=== PATIENT | male | born 1980 | race Caucasian/White ===

== ENCOUNTER 2017-08-22 15:16 | Emergency (ER) | payer BC ==
[2017-08-22] MEDS ORDERED: Sodium Chloride 0.9% 10 ML Syringe FLUSH PRN (15:28)
--- NOTE | 2017-08-22 16:30 | EDM.PDOC ---
ED HPI GENERAL MEDICAL PROBLEM - General Chief Complaint: General Stated Complaint: ABDOMINAL PAIN Time Seen by Provider: 08/22/17 15:27 Source of Information: Reports: Patient, RN Notes Reviewed - History of Present Illness INITIAL COMMENTS - FREE TEXT/NARRATIVE: 36 year old male referred from [facility] for eval of abd pain, distension, possible ascites. He "quit drinking" 3 wks ago but than admits he is still having 1 or 2 beers per evening. Not drinking hard liquor morning to evening like he had been previously. Has intermitant abd pain the last week or so. Increased abd distensiont the last 2 to 3 weeks "since he quit drinking so heavily". No pain at this time. No nausea or vomting. No difficulty breathing. Eating OK. - Related Data Allergies Allergy/AdvReac Type Severity Reaction Status Date / Time No Known Allergies Allergy Verified 08/22/17 15:28 Home Meds: Home Meds Simethicone [Gas-X] 1 tab PO DAILY PRN 08/22/17 [History] Past Medical History - Past Health History Medical/Surgical History: Denies Medical/Surgical History Social & Family History - Tobacco Use Smoking Status *Q: Current Every Day Smoker Years of Tobacco use: 10 Packs/Tins Daily: 0.2 - Caffeine Use Caffeine Use: Reports: None - Recreational Drug Use Recreational Drug Use: Yes Drug Use in Last 12 Months: No ED ROS GENERAL - Review of Systems Review Of Systems: See Below Constitutional: Denies: Fever, Chills, Diaphoresis HEENT: Reports: No Symptoms Respiratory: Denies: Shortness of Breath, Pleuritic Chest Pain Cardiovascular: Denies: Chest Pain GI/Abdominal: Reports: Abdominal Pain. Denies: Diarrhea, Nausea, Vomiting Musculoskeletal: Reports: No Symptoms Skin: Reports: No Symptoms Neurological: Reports: No Symptoms ED EXAM, GENERAL - Physical Exam Exam: See Below General Appearance: Alert, No Apparent Distress Eye Exam: Bilateral Eye: PERRL Throat/Mouth: Normal Inspection, Normal Oropharynx Head: Atraumatic. No: Facial Swelling Neck: Supple, Full Range of Motion Respiratory/Chest: No Respiratory Distress, Lungs Clear, Normal Breath Sounds Cardiovascular: Tachycardia GI/Abdominal: Soft, Distended (moderate distension, no fluid wave present but suspect ascites). No: Guarding, Rebound, Tender Extremities: Normal Inspection, Normal Range of Motion Neurological: Alert, Oriented, No Motor/Sensory Deficits Skin Exam: Warm, Dry, Normal Color Course - Vital Signs Text/Narrative:: labs have come back as documented, no abd pain while here in the ED, mostly concerned about increasing abd distension this past month or so. He does appear to have ascites, presumably from alcoholic cirrhosis. Labs as documented , bilirubin elevated, liver enzymes are relatively OK, have ordere outpatient US of liver, GB, discharge instr. as documented. Last Recorded V/S: Last Vital Signs Temp 98 F 08/22/17 15:26 Pulse 126 H 08/22/17 15:26 Resp 18 08/22/17 15:26 BP 128/93 H 08/22/17 15:26 Pulse Ox 97 08/22/17 15:26 - Orders/Labs/Meds Orders: Active Orders 24 hr Category Date Time Status Peripheral IV Care [RC] . DIRECTED Care 08/22/17 15:29 Inactive Labs: Laboratory Tests 08/22/17 08/22/17 08/22/17 Range/Units 16:20 16:20 16:20 WBC 12.01 H (4.23-9.07) K/mm3 RBC 4.04 L (4.63-6.08) M/mm3 Hgb 14.2 (13.7-17.5) gm/L Hct 40.6 (40.1-51.0) % MCV 100.5 H (79.0-92.2) fl MCH 35.1 H (25.7-32.2) pg MCHC 35.0 (32.2-35.5) g/dl RDW Std Deviation 52.7 H (35.1-43.9) fL Plt Count 164 (163-337) K/mm3 MPV 9.6 (9.4-12.3) fl Neut % (Auto) 74.0 H (34.0-67.9) % Lymph % (Auto) 14.9 L (21.8-53.1) % Lanier % (Auto) 9.4 (5.3-12.2) % Eos % (Auto) 0.7 L (0.8-7.0) Baso % (Auto) 0.2 (0.1-1.2) % Neut # (Auto) 8.88 H (1.78-5.38) K/mm3 Lymph # (Auto) 1.79 (1.32-3.57) K/mm3 Lanier # (Auto) 1.13 H (0.30-0.82) K/mm3 Eos # (Auto) 0.09 (0.04-0.54) K/mm3 Baso # (Auto) 0.02 (0.01-0.08) K/mm3 Manual Slide Review Abnormal smear Sodium 130 L (136-145) mEq/L Potassium 2.9 L (3.5-5.1) mEq/L Chloride 90 L (98-107) mEq/L Carbon Dioxide 26 (21-32) mEq/L Anion Gap 16.9 H (5-15) BUN 7 (7-18) mg/dL Creatinine 0.7 (0.7-1.3) mg/dL Est Cr Clr Drug Dosing 138.43 mL/min Estimated GFR (MDRD) > 60 (>60) mL/min BUN/Creatinine Ratio 10.0 L (14-18) Glucose 216 H (74-106) mg/dL Calcium 8.3 L (8.5-10.1) mg/dL Total Bilirubin 4.6 H (0.2-1.0) mg/dL AST 114 H (15-37) U/L ALT 54 (16-63) U/L Alkaline Phosphatase 245 H (46-116) U/L C-Reactive Protein 12.4 H* (<1.0) mg/dL Total Protein 6.3 L (6.4-8.2) g/dl Albumin 2.2 L (3.4-5.0) g/dl Globulin 4.1 gm/dL Albumin/Globulin Ratio 0.5 L (1-2) Lipase 291 (73-393) U/L Meds: Medications Discontinued Medications Generic Name Dose Route Start Last Admin Trade Name Freq PRN Reason Stop Dose Admin Sodium Chloride 10 ml 08/22/17 15:28 Saline Flush FLUSH ASDIRECTED PRN Keep Vein Open Departure - Departure Time of Disposition: 17:38 Disposition: Home, Self-Care 01 Condition: Fair Clinical Impression: Abdominal pain Qualifiers: Abdominal location: generalized Qualified Code(s): R10.84 - Generalized abdominal pain Ascites Qualifiers: Ascites type: due to alcoholic cirrhosis Qualified Code(s): K70.31 - Alcoholic cirrhosis of liver with ascites - Discharge Information Instructions: Abdominal Pain, Adult, [id number], Ascites Referrals: PCP,None [Primary Care Provider] - Forms: ED Department Discharge Additional Instructions: avoid further alcohol, eat regular healthy balanced diet, drink plenty of water to maintain hydration. Upper abd ultrasound. Follow up with Janet Bailey for a complete physical, ultrasound results. Return to ED as needed. - My Orders Last 24 Hours: My Active Orders 08/22/17 15:29 Peripheral IV Care [RC] . DIRECTED - Assessment/Plan Last 24 Hours: My Active Orders 08/22/17 15:29 Peripheral IV Care [RC] . DIRECTED
== END 2017-08-22 17:47 | disposition home or self-care (01) ==
LOC: JD.ED 15:16
DX: K70.31 Alcoholic cirrhosis of liver with ascites (principal); F17.210 Nicotine dependence, cigarettes, uncomplicated; Z79.899 Other long term (current) drug therapy
CPT/HCPCS: 36415; 80053; 83690; 85025; 86140; 99284

== ENCOUNTER 2017-09-07 14:04 | Emergency (ER) | payer BC ==
[2017-09-07] MEDS ORDERED: Sodium Chloride 0.9% 10 ML Syringe FLUSH PRN (14:31)
[2017-09-07] MEDS ORDERED: Sodium Chloride 0.9% 1,000 ML IV ONE ×2 (14:33)
[2017-09-07] MEDS ORDERED: Lactulose Soln 10 GM/15 ML 30 ML UD Cup PO ONE (14:38)
--- NOTE | 2017-09-07 14:46 | EDM.PDOC ---
<Nakul Allison - Last Filed: 09/07/17 18:51> ED HPI GENERAL MEDICAL PROBLEM - General Chief Complaint: General Stated Complaint: [facility] Time Seen by Provider: 09/07/17 14:19 - Related Data Allergies Allergy/AdvReac Type Severity Reaction Status Date / Time No Known Allergies Allergy Verified 09/07/17 14:13 Home Meds: Home Meds . [No Known Home Meds] 09/07/17 [History] ED CENTRAL LINE INSERTION - Central Line Insertion Central Line Indication: IV access, medication administration Site: subclavian (R) Prep: CDC/MBT Guidelines, Sterile Drapes, Other (chlorprep) Lumen: triple Ultrasound guided: Yes Guidewire and dilator removed intact: Yes Complications: No Secured with suture: Yes Post placement confirmation: CXR, all ports aspirated, all ports flushed CXR post-procedure: no pneumothorax, no hemothorax Dressing applied: by nurse, op-site dressing Course - Vital Signs Last Recorded V/S: Last Vital Signs Temp 96.6 F 09/07/17 18:20 Pulse 96 09/07/17 18:20 Resp 10 L 09/07/17 18:20 BP 103/59 L 09/07/17 18:20 Pulse Ox 98 09/07/17 18:20 - Orders/Labs/Meds Labs: Laboratory Tests 09/07/17 09/07/17 09/07/17 Range/Units 14:31 14:50 14:50 WBC 11.62 H (4.23-9.07) K/mm3 RBC 3.21 L (4.63-6.08) M/mm3 Hgb 11.5 L (13.7-17.5) gm/L Hct 31.7 L (40.1-51.0) % MCV 98.8 H (79.0-92.2) fl MCH 35.8 H (25.7-32.2) pg MCHC 36.3 H (32.2-35.5) g/dl RDW Std Deviation 58.6 H (35.1-43.9) fL Plt Count 168 (163-337) K/mm3 MPV 9.1 L (9.4-12.3) fl Neut % (Auto) Cancelled Lymph % (Auto) Cancelled [place] % (Auto) Cancelled Eos % (Auto) Cancelled Baso % (Auto) Cancelled Neut # (Auto) Cancelled Lymph # (Auto) Cancelled [place] # (Auto) Cancelled Eos # (Auto) Cancelled Baso # (Auto) Cancelled Neutrophils % (Manual) 85 H (40-60) % Band Neutrophils % 0 (0-10) % Lymphocytes % (Manual) 11 L (20-40) % Atypical Lymphs % 0 % Monocytes % (Manual) 4 (2-10) % Eosinophils % (Manual) 0 L (0.8-7.0) % Basophils % (Manual) 0 L (0.2-1.2) Manual Slide Review Cancelled Toxic Granulation See note Platelet Estimate Adequate Plt Morphology Comment Normal Polychromasia 1+ slight Anisocytosis 2+ moderate Macrocytosis Few Tear Drop Cells Rare Schistocytes Rare RBC Morph Comment Not Reportable PT 24.7 H (9.5-12.1) SECONDS INR 2.30 APTT 47 H (24-31) SECONDS Puncture Site Lt radial ABG pH 7.48 H (7.35-7.45) ABG pCO2 25.0 L (35.0-45.0) mmHg ABG pO2 73.0 L (80.0-100.0) mmHg ABG HCO3 18.5 L (22.0-26.0) meq/L ABG O2 Saturation 93.0 L (96.0-97.0) % ABG Base Excess -3.5 L (-2-2.0) Cosme Test Positive A-a Gradient mmHg O2 Delivery Device FiO2 0.00 L (21.00-100.00) % Tidal Volume cc PEEP cmH20 Sodium (136-145) mEq/L Potassium (3.5-5.1) mEq/L Chloride (98-107) mEq/L Carbon Dioxide (21-32) mEq/L Anion Gap (5-15) BUN (7-18) mg/dL Creatinine (0.7-1.3) mg/dL Est Cr Clr Drug Dosing mL/min Estimated GFR (MDRD) (>60) mL/min BUN/Creatinine Ratio (14-18) Glucose (74-106) mg/dL POC Glucose (70-105) mg/dL Lactic Acid (0.4-2.0) mmol/L Calcium (8.5-10.1) mg/dL Magnesium (1.8-2.4) mg/dl Total Bilirubin (0.2-1.0) mg/dL Direct Bilirubin (0.0-0.2) mg/dl GGT (15-85) U/L AST (15-37) U/L ALT (16-63) U/L Alkaline Phosphatase (46-116) U/L Ammonia (11-32) umol/L Total Protein (6.4-8.2) g/dl Albumin (3.4-5.0) g/dl Globulin gm/dL Albumin/Globulin Ratio (1-2) TSH 3rd Generation (0.358-3.74) uIU/mL Salicylates (2.8-20) mg/dL Acetaminophen (10-30) ug/mL Ethyl Alcohol (0.00) gm% 09/07/17 09/07/17 09/07/17 Range/Units 14:50 14:50 14:50 WBC (4.23-9.07) K/mm3 RBC (4.63-6.08) M/mm3 Hgb (13.7-17.5) gm/L Hct (40.1-51.0) % MCV (79.0-92.2) fl MCH (25.7-32.2) pg MCHC (32.2-35.5) g/dl RDW Std Deviation (35.1-43.9) fL Plt Count (163-337) K/mm3 MPV (9.4-12.3) fl Neut % (Auto) Lymph % (Auto) [place] % (Auto) Eos % (Auto) Baso % (Auto) Neut # (Auto) Lymph # (Auto) [place] # (Auto) Eos # (Auto) Baso # (Auto) Neutrophils % (Manual) (40-60) % Band Neutrophils % (0-10) % Lymphocytes % (Manual) (20-40) % Atypical Lymphs % % Monocytes % (Manual) (2-10) % Eosinophils % (Manual) (0.8-7.0) % Basophils % (Manual) (0.2-1.2) Manual Slide Review Toxic Granulation Platelet Estimate Plt Morphology Comment Polychromasia Anisocytosis Macrocytosis Tear Drop Cells Schistocytes RBC Morph Comment PT (9.5-12.1) SECONDS INR APTT (24-31) SECONDS Puncture Site ABG pH (7.35-7.45) ABG pCO2 (35.0-45.0) mmHg ABG pO2 (80.0-100.0) mmHg ABG HCO3 (22.0-26.0) meq/L ABG O2 Saturation (96.0-97.0) % ABG Base Excess (-2-2.0) Cosme Test A-a Gradient mmHg O2 Delivery Device FiO2 (21.00-100.00) % Tidal Volume cc PEEP cmH20 Sodium (136-145) mEq/L Potassium (3.5-5.1) mEq/L Chloride (98-107) mEq/L Carbon Dioxide (21-32) mEq/L Anion Gap (5-15) BUN (7-18) mg/dL Creatinine (0.7-1.3) mg/dL Est Cr Clr Drug Dosing mL/min Estimated GFR (MDRD) (>60) mL/min BUN/Creatinine Ratio (14-18) Glucose (74-106) mg/dL POC Glucose (70-105) mg/dL Lactic Acid 5.0 H (0.4-2.0) mmol/L Calcium (8.5-10.1) mg/dL Magnesium (1.8-2.4) mg/dl Total Bilirubin 21.4 H* (0.2-1.0) mg/dL Direct Bilirubin (0.0-0.2) mg/dl GGT (15-85) U/L AST (15-37) U/L ALT (16-63) U/L Alkaline Phosphatase (46-116) U/L Ammonia (11-32) umol/L Total Protein (6.4-8.2) g/dl Albumin (3.4-5.0) g/dl Globulin gm/dL Albumin/Globulin Ratio (1-2) TSH 3rd Generation 1.015 (0.358-3.74) uIU/mL Salicylates < 0.2 L (2.8-20) mg/dL Acetaminophen 0 L (10-30) ug/mL Ethyl Alcohol 0.00 (0.00) gm% 09/07/17 09/07/17 09/07/17 Range/Units 14:50 14:50 15:37 WBC (4.23-9.07) K/mm3 RBC (4.63-6.08) M/mm3 Hgb (13.7-17.5) gm/L Hct (40.1-51.0) % MCV (79.0-92.2) fl MCH (25.7-32.2) pg MCHC (32.2-35.5) g/dl RDW Std Deviation (35.1-43.9) fL Plt Count (163-337) K/mm3 MPV (9.4-12.3) fl Neut % (Auto) Lymph % (Auto) [place] % (Auto) Eos % (Auto) Baso % (Auto) Neut # (Auto) Lymph # (Auto) [place] # (Auto) Eos # (Auto) Baso # (Auto) Neutrophils % (Manual) (40-60) % Band Neutrophils % (0-10) % Lymphocytes % (Manual) (20-40) % Atypical Lymphs % % Monocytes % (Manual) (2-10) % Eosinophils % (Manual) (0.8-7.0) % Basophils % (Manual) (0.2-1.2) Manual Slide Review Toxic Granulation Platelet Estimate Plt Morphology Comment Polychromasia Anisocytosis Macrocytosis Tear Drop Cells Schistocytes RBC Morph Comment PT (9.5-12.1) SECONDS INR APTT (24-31) SECONDS Puncture Site ABG pH (7.35-7.45) ABG pCO2 (35.0-45.0) mmHg ABG pO2 (80.0-100.0) mmHg ABG HCO3 (22.0-26.0) meq/L ABG O2 Saturation (96.0-97.0) % ABG Base Excess (-2-2.0) Cosme Test A-a Gradient mmHg O2 Delivery Device FiO2 (21.00-100.00) % Tidal Volume cc PEEP cmH20 Sodium (136-145) mEq/L Potassium (3.5-5.1) mEq/L Chloride (98-107) mEq/L Carbon Dioxide (21-32) mEq/L Anion Gap (5-15) BUN (7-18) mg/dL Creatinine (0.7-1.3) mg/dL Est Cr Clr Drug Dosing mL/min Estimated GFR (MDRD) (>60) mL/min BUN/Creatinine Ratio (14-18) Glucose (74-106) mg/dL POC Glucose 74 (70-105) mg/dL Lactic Acid (0.4-2.0) mmol/L Calcium (8.5-10.1) mg/dL Magnesium 2.7 H (1.8-2.4) mg/dl Total Bilirubin (0.2-1.0) mg/dL Direct Bilirubin 18.00 H (0.0-0.2) mg/dl GGT 586 H (15-85) U/L AST (15-37) U/L ALT (16-63) U/L Alkaline Phosphatase (46-116) U/L Ammonia (11-32) umol/L Total Protein (6.4-8.2) g/dl Albumin (3.4-5.0) g/dl Globulin gm/dL Albumin/Globulin Ratio (1-2) TSH 3rd Generation (0.358-3.74) uIU/mL Salicylates (2.8-20) mg/dL Acetaminophen (10-30) ug/mL Ethyl Alcohol (0.00) gm% 09/07/17 09/07/17 09/07/17 Range/Units 16:00 16:00 18:07 WBC (4.23-9.07) K/mm3 RBC (4.63-6.08) M/mm3 Hgb (13.7-17.5) gm/L Hct (40.1-51.0) % MCV (79.0-92.2) fl MCH (25.7-32.2) pg MCHC (32.2-35.5) g/dl RDW Std Deviation (35.1-43.9) fL Plt Count (163-337) K/mm3 MPV (9.4-12.3) fl Neut % (Auto) Lymph % (Auto) [place] % (Auto) Eos % (Auto) Baso % (Auto) Neut # (Auto) Lymph # (Auto) [place] # (Auto) Eos # (Auto) Baso # (Auto) Neutrophils % (Manual) (40-60) % Band Neutrophils % (0-10) % Lymphocytes % (Manual) (20-40) % Atypical Lymphs % % Monocytes % (Manual) (2-10) % Eosinophils % (Manual) (0.8-7.0) % Basophils % (Manual) (0.2-1.2) Manual Slide Review Toxic Granulation Platelet Estimate Plt Morphology Comment Polychromasia Anisocytosis Macrocytosis Tear Drop Cells Schistocytes RBC Morph Comment PT (9.5-12.1) SECONDS INR APTT (24-31) SECONDS Puncture Site Lt radial ABG pH 7.22 L (7.35-7.45) ABG pCO2 50.4 H (35.0-45.0) mmHg ABG pO2 84.0 (80.0-100.0) mmHg ABG HCO3 20.0 L (22.0-26.0) meq/L ABG O2 Saturation 89.8 L (96.0-97.0) % ABG Base Excess -7.2 L (-2-2.0) Cosme Test Positive A-a Gradient 173 mmHg O2 Delivery Device Ventilator FiO2 (21.00-100.00) % Tidal Volume 450.0 cc PEEP 5.0 cmH20 Sodium 120 L (136-145) mEq/L Potassium 6.1 H (3.5-5.1) mEq/L Chloride 82 L (98-107) mEq/L Carbon Dioxide 18 L (21-32) mEq/L Anion Gap 26.1 H (5-15) BUN 121 H (7-18) mg/dL Creatinine 10.2 H (0.7-1.3) mg/dL Est Cr Clr Drug Dosing 8.86 mL/min Estimated GFR (MDRD) 6 (>60) mL/min BUN/Creatinine Ratio 11.9 L (14-18) Glucose 147 H (74-106) mg/dL POC Glucose (70-105) mg/dL Lactic Acid (0.4-2.0) mmol/L Calcium 6.9 L (8.5-10.1) mg/dL Magnesium (1.8-2.4) mg/dl Total Bilirubin 18.1 H* (0.2-1.0) mg/dL Direct Bilirubin (0.0-0.2) mg/dl GGT (15-85) U/L AST 151 H (15-37) U/L ALT 63 (16-63) U/L Alkaline Phosphatase 231 H (46-116) U/L Ammonia 73 H (11-32) umol/L Total Protein 4.7 L (6.4-8.2) g/dl Albumin 1.4 L (3.4-5.0) g/dl Globulin 3.3 gm/dL Albumin/Globulin Ratio 0.4 L (1-2) TSH 3rd Generation (0.358-3.74) uIU/mL Salicylates (2.8-20) mg/dL Acetaminophen (10-30) ug/mL Ethyl Alcohol (0.00) gm% Meds: Medications Discontinued Medications Generic Name Dose Route Start Last Admin Trade Name Shoshana PRN Reason Stop Dose Admin Dextrose/Water 50 ml 09/07/17 15:38 09/07/17 15:40 Dextrose 50% In Water IVPUSH 09/07/17 15:39 50 ml ASDIRECTED ONE Administration Dextrose/Water Confirm 09/07/17 15:39 09/07/17 15:54 Dextrose 50% In Water Administered 09/07/17 15:40 Not Given Dose 50 ml .ROUTE .STK-MED ONE Etomidate 40 mg 09/07/17 15:00 Amidate IVPUSH 09/07/17 15:01 .STK-MED ONE Sodium Chloride 1,000 mls @ 999 mls/hr 09/07/17 14:33 09/07/17 15:46 Normal Saline IV 09/07/17 15:33 999 mls/hr ONETIME ONE Administration Sodium Chloride 1,000 mls @ 999 mls/hr 09/07/17 14:33 09/07/17 15:25 Normal Saline IV 09/07/17 15:33 999 mls/hr .BOLUS ONE Administration Norepinephrine Bitartrate 4 mg 250 mls @ 7.5 mls/hr 09/07/17 15:15 / Dextrose/Water IV TITRATE ROXANA Protocol 2 MCG/MIN Norepinephrine Bitartrate 4 mg 250 mls @ 7.5 mls/hr 09/07/17 16:30 09/07/17 16:30 / Dextrose/Water IV 2 mcg/min TITRATE ROXANA 7.5 mls/hr Administration Protocol 2 MCG/MIN Dextrose/Water Confirm 09/07/17 16:22 09/07/17 16:36 Dextrose 5% In Water Administered 09/07/17 16:23 Not Given Dose 250 mls @ as directed .ROUTE .STK-MED ONE Propofol Confirm 09/07/17 17:11 Diprivan 100 Ml Administered 09/07/17 17:12 Dose 100 mls @ as directed .ROUTE .STK-MED ONE Pantoprazole Sodium 80 mg/ 100 mls @ 10 mls/hr 09/07/17 17:25 Sodium Chloride IV 09/08/17 03:24 ONETIME ONE 8 MG/HR Lactated Ringer's 2,000 ml 09/07/17 15:00 Ringers, Lactated .ROUTE 09/07/17 15:01 .STK-MED ONE Lactulose 30 gm 09/07/17 14:38 09/07/17 16:34 Cephulac PO 09/07/17 14:39 30 gm ONETIME ONE Administration Pantoprazole Sodium 80 mg 09/07/17 15:00 Protonix Iv .ROUTE 09/07/17 15:01 .STK-MED ONE Propofol 1,000 mg 09/07/17 15:00 Diprivan 100 Ml .ROUTE 09/07/17 15:01 .STK-MED ONE Rocuronium [place] 100 mg 09/07/17 15:00 Zemuron .ROUTE 09/07/17 15:01 .STK-MED ONE Sodium Chloride 10 ml 09/07/17 14:31 Saline Flush FLUSH ASDIRECTED PRN Keep Vein Open Sodium Chloride 100 ml 09/07/17 15:00 Normal Saline .ROUTE 09/07/17 15:01 .STK-MED ONE Departure - Departure Disposition: DC/Tfer to [facility] 02 Clinical Impression: Hyponatremia, Spontaneous bacterial peritonitis, Blood coagulation disorder Ascites Qualifiers: Ascites type: due to alcoholic cirrhosis Qualified Code(s): K70.31 - Alcoholic cirrhosis of liver with ascites Cirrhosis of liver Qualifiers: Hepatic cirrhosis type: alcoholic cirrhosis Ascites presence: with ascites Qualified Code(s): K70.31 - Alcoholic cirrhosis of liver with ascites Acute renal failure Qualifiers: Acute renal failure type: unspecified Qualified Code(s): N17.9 - Acute kidney failure, unspecified GI bleed Qualifiers: GI bleed type/associated pathology: unspecified gastrointestinal hemorrhage type Qualified Code(s): K92.2 - Gastrointestinal hemorrhage, unspecified - Discharge Information Referrals: PCP,None [Primary Care Provider] - Forms: ED Department Discharge <Gui Friedman - Last Filed: 09/11/17 13:48> ED HPI GENERAL MEDICAL PROBLEM - General Source of Information: Reports: Patient History Limitations: Reports: No Limitations - History of Present Illness INITIAL COMMENTS - FREE TEXT/NARRATIVE: Patient is a 28-year-old male with a long history of alcoholism who presents to the ED with altered mental status, jaundice, complaining of belly pain. Family states up until 2 and half weeks ago patient was drinking 30 pack of beer and liquor. Family states patient all of sudden quit cold turkey and has voiced to family he wants to get help. This was stated two days ago. Patient has been a long time alcoholic. Recently turned jaundice yesterday that has worsened. Appetite has been poor since quitting. Family states he has not eaten anything. He has history of cirrhosis and is on spiranolactone, chlordiazepam, and hydromorphone. Family states he smoke [address] Gauthier. Unclear if patient has been taking these medications appropriately or not. Past Medical History - Past Health History Medical/Surgical History: Denies Medical/Surgical History Gastrointestinal History: Reports: Cirrhosis, Other (See Below) Other Gastrointestinal History: liver failure Social & Family History - Tobacco Use Smoking Status *Q: Current Every Day Smoker Years of Tobacco use: 20 Packs/Tins Daily: 1 - Caffeine Use Caffeine Use: Reports: None - Recreational Drug Use Recreational Drug Use: No ED ROS GENERAL - Review of Systems Review Of Systems: Unable To Obtain ED EXAM, GENERAL - Physical Exam Exam: See Below Exam Limited By: Altered Mental Status General Appearance: Alert, Lethargic Eye Exam: Bilateral Eye: PERRL, Other (Scleral icterus) Nose: Normal Inspection Throat/Mouth: No Airway Compromise, Other (Dry oral mucosa). No: Normal Voice Head: Atraumatic, Normocephalic Neck: Normal Inspection, Supple Respiratory/Chest: No Respiratory Distress, Lungs Clear, Normal Breath Sounds, No Accessory Muscle Use, Chest Non-Tender Cardiovascular: Normal Peripheral Pulses, Regular Rate, Rhythm, No Murmur ( Obvious) Peripheral Pulses: 2+: Carotid (L), Carotid (R) GI/Abdominal: Normal Bowel Sounds, Distended, Tender (Throughout), Other ( Ascites present positive fluid wave) Extremities: Non-Tender, No Pedal Edema Neurological: Alert, CN II-XII Intact, No Motor/Sensory Deficits, Confused, Slow to Respond. No: Oriented, Normal Cognition Skin Exam: Warm, Dry, Jaundice ED GENERAL MEDICAL PROCEDURES - Endotracheal Intubation Time of Intubation: 17:14 ET Intubation Indication: Airway Protection Preparation: Suction, Balloon Tested, BVM Set Up, Difficult Airway Equip Airway Assessment: Other (no teeth upper palate) Pre-Oxygenation: Assisted with BVM, 100% FiO2 Anesthesia Meds: Etomidate, Rocuronium Placement: Orotracheal, Cuffed, Uncomplicated Placement Cords Visualized: Yes Number of Attempts: 1 Confirmed By: CO2 Indicator, Bilateral Breath Sounds, Chest Xray Tube Secured By: By RT Course - Orders/Labs/Meds Labs: Laboratory Tests 09/07/17 09/07/17 09/07/17 Range/Units 14:31 14:50 14:50 WBC 11.62 H (4.23-9.07) K/mm3 RBC 3.21 L (4.63-6.08) M/mm3 Hgb 11.5 L (13.7-17.5) gm/L Hct 31.7 L (40.1-51.0) % MCV 98.8 H (79.0-92.2) fl MCH 35.8 H (25.7-32.2) pg MCHC 36.3 H (32.2-35.5) g/dl RDW Std Deviation 58.6 H (35.1-43.9) fL Plt Count 168 (163-337) K/mm3 MPV 9.1 L (9.4-12.3) fl Neut % (Auto) Cancelled Lymph % (Auto) Cancelled [place] % (Auto) Cancelled Eos % (Auto) Cancelled Baso % (Auto) Cancelled Neut # (Auto) Cancelled Lymph # (Auto) Cancelled [place] # (Auto) Cancelled Eos # (Auto) Cancelled Baso # (Auto) Cancelled Neutrophils % (Manual) 85 H (40-60) % Band Neutrophils % 0 (0-10) % Lymphocytes % (Manual) 11 L (20-40) % Atypical Lymphs % 0 % Monocytes % (Manual) 4 (2-10) % Eosinophils % (Manual) 0 L (0.8-7.0) % Basophils % (Manual) 0 L (0.2-1.2) Manual Slide Review Cancelled Toxic Granulation See note Platelet Estimate Adequate Plt Morphology Comment Normal Polychromasia 1+ slight Anisocytosis 2+ moderate Macrocytosis Few Tear Drop Cells Rare Schistocytes Rare RBC Morph Comment Not Reportable PT 24.7 H (9.5-12.1) SECONDS INR 2.30 APTT 47 H (24-31) SECONDS Puncture Site Lt radial ABG pH 7.48 H (7.35-7.45) ABG pCO2 25.0 L (35.0-45.0) mmHg ABG pO2 73.0 L (80.0-100.0) mmHg ABG HCO3 18.5 L (22.0-26.0) meq/L ABG O2 Saturation 93.0 L (96.0-97.0) % ABG Base Excess -3.5 L (-2-2.0) Cosme Test Positive A-a Gradient mmHg O2 Delivery Device FiO2 0.00 L (21.00-100.00) % Tidal Volume cc PEEP cmH20 Sodium (136-145) mEq/L Potassium (3.5-5.1) mEq/L Chloride (98-107) mEq/L Carbon Dioxide (21-32) mEq/L Anion Gap (5-15) BUN (7-18) mg/dL Creatinine (0.7-1.3) mg/dL Est Cr Clr Drug Dosing mL/min Estimated GFR (MDRD) (>60) mL/min BUN/Creatinine Ratio (14-18) Glucose (74-106) mg/dL POC Glucose (70-105) mg/dL Lactic Acid (0.4-2.0) mmol/L Calcium (8.5-10.1) mg/dL Magnesium (1.8-2.4) mg/dl Total Bilirubin (0.2-1.0) mg/dL Direct Bilirubin (0.0-0.2) mg/dl GGT (15-85) U/L AST (15-37) U/L ALT (16-63) U/L Alkaline Phosphatase (46-116) U/L Ammonia (11-32) umol/L Total Protein (6.4-8.2) g/dl Albumin (3.4-5.0) g/dl Globulin gm/dL Albumin/Globulin Ratio (1-2) TSH 3rd Generation (0.358-3.74) uIU/mL Salicylates (2.8-20) mg/dL Acetaminophen (10-30) ug/mL Ethyl Alcohol (0.00) gm% 09/07/17 09/07/17 09/07/17 Range/Units 14:50 14:50 14:50 WBC (4.23-9.07) K/mm3 RBC (4.63-6.08) M/mm3 Hgb (13.7-17.5) gm/L Hct (40.1-51.0) % MCV (79.0-92.2) fl MCH (25.7-32.2) pg MCHC (32.2-35.5) g/dl RDW Std Deviation (35.1-43.9) fL Plt Count (163-337) K/mm3 MPV (9.4-12.3) fl Neut % (Auto) Lymph % (Auto) [place] % (Auto) Eos % (Auto) Baso % (Auto) Neut # (Auto) Lymph # (Auto) [place] # (Auto) Eos # (Auto) Baso # (Auto) Neutrophils % (Manual) (40-60) % Band Neutrophils % (0-10) % Lymphocytes % (Manual) (20-40) % Atypical Lymphs % % Monocytes % (Manual) (2-10) % Eosinophils % (Manual) (0.8-7.0) % Basophils % (Manual) (0.2-1.2) Manual Slide Review Toxic Granulation Platelet Estimate Plt Morphology Comment Polychromasia Anisocytosis Macrocytosis Tear Drop Cells Schistocytes RBC Morph Comment PT (9.5-12.1) SECONDS INR APTT (24-31) SECONDS Puncture Site ABG pH (7.35-7.45) ABG pCO2 (35.0-45.0) mmHg ABG pO2 (80.0-100.0) mmHg ABG HCO3 (22.0-26.0) meq/L ABG O2 Saturation (96.0-97.0) % ABG Base Excess (-2-2.0) Cosme Test A-a Gradient mmHg O2 Delivery Device FiO2 (21.00-100.00) % Tidal Volume cc PEEP cmH20 Sodium (136-145) mEq/L Potassium (3.5-5.1) mEq/L Chloride (98-107) mEq/L Carbon Dioxide (21-32) mEq/L Anion Gap (5-15) BUN (7-18) mg/dL Creatinine (0.7-1.3) mg/dL Est Cr Clr Drug Dosing mL/min Estimated GFR (MDRD) (>60) mL/min BUN/Creatinine Ratio (14-18) Glucose (74-106) mg/dL POC Glucose (70-105) mg/dL Lactic Acid 5.0 H (0.4-2.0) mmol/L Calcium (8.5-10.1) mg/dL Magnesium (1.8-2.4) mg/dl Total Bilirubin 21.4 H* (0.2-1.0) mg/dL Direct Bilirubin (0.0-0.2) mg/dl GGT (15-85) U/L AST (15-37) U/L ALT (16-63) U/L Alkaline Phosphatase (46-116) U/L Ammonia (11-32) umol/L Total Protein (6.4-8.2) g/dl Albumin (3.4-5.0) g/dl Globulin gm/dL Albumin/Globulin Ratio (1-2) TSH 3rd Generation 1.015 (0.358-3.74) uIU/mL Salicylates < 0.2 L (2.8-20) mg/dL Acetaminophen 0 L (10-30) ug/mL Ethyl Alcohol 0.00 (0.00) gm% 09/07/17 09/07/17 09/07/17 Range/Units 14:50 14:50 15:37 WBC (4.23-9.07) K/mm3 RBC (4.63-6.08) M/mm3 Hgb (13.7-17.5) gm/L Hct (40.1-51.0) % MCV (79.0-92.2) fl MCH (25.7-32.2) pg MCHC (32.2-35.5) g/dl RDW Std Deviation (35.1-43.9) fL Plt Count (163-337) K/mm3 MPV (9.4-12.3) fl Neut % (Auto) Lymph % (Auto) [place] % (Auto) Eos % (Auto) Baso % (Auto) Neut # (Auto) Lymph # (Auto) [place] # (Auto) Eos # (Auto) Baso # (Auto) Neutrophils % (Manual) (40-60) % Band Neutrophils % (0-10) % Lymphocytes % (Manual) (20-40) % Atypical Lymphs % % Monocytes % (Manual) (2-10) % Eosinophils % (Manual) (0.8-7.0) % Basophils % (Manual) (0.2-1.2) Manual Slide Review Toxic Granulation Platelet Estimate Plt Morphology Comment Polychromasia Anisocytosis Macrocytosis Tear Drop Cells Schistocytes RBC Morph Comment PT (9.5-12.1) SECONDS INR APTT (24-31) SECONDS Puncture Site ABG pH (7.35-7.45) ABG pCO2 (35.0-45.0) mmHg ABG pO2 (80.0-100.0) mmHg ABG HCO3 (22.0-26.0) meq/L ABG O2 Saturation (96.0-97.0) % ABG Base Excess (-2-2.0) Cosme Test A-a Gradient mmHg O2 Delivery Device FiO2 (21.00-100.00) % Tidal Volume cc PEEP cmH20 Sodium (136-145) mEq/L Potassium (3.5-5.1) mEq/L Chloride (98-107) mEq/L Carbon Dioxide (21-32) mEq/L Anion Gap (5-15) BUN (7-18) mg/dL Creatinine (0.7-1.3) mg/dL Est Cr Clr Drug Dosing mL/min Estimated GFR (MDRD) (>60) mL/min BUN/Creatinine Ratio (14-18) Glucose (74-106) mg/dL POC Glucose 74 (70-105) mg/dL Lactic Acid (0.4-2.0) mmol/L Calcium (8.5-10.1) mg/dL Magnesium 2.7 H (1.8-2.4) mg/dl Total Bilirubin (0.2-1.0) mg/dL Direct Bilirubin 18.00 H (0.0-0.2) mg/dl GGT 586 H (15-85) U/L AST (15-37) U/L ALT (16-63) U/L Alkaline Phosphatase (46-116) U/L Ammonia (11-32) umol/L Total Protein (6.4-8.2) g/dl Albumin (3.4-5.0) g/dl Globulin gm/dL Albumin/Globulin Ratio (1-2) TSH 3rd Generation (0.358-3.74) uIU/mL Salicylates (2.8-20) mg/dL Acetaminophen (10-30) ug/mL Ethyl Alcohol (0.00) gm% 09/07/17 09/07/17 09/07/17 Range/Units 16:00 16:00 18:07 WBC (4.23-9.07) K/mm3 RBC (4.63-6.08) M/mm3 Hgb (13.7-17.5) gm/L Hct (40.1-51.0) % MCV (79.0-92.2) fl MCH (25.7-32.2) pg MCHC (32.2-35.5) g/dl RDW Std Deviation (35.1-43.9) fL Plt Count (163-337) K/mm3 MPV (9.4-12.3) fl Neut % (Auto) Lymph % (Auto) [place] % (Auto) Eos % (Auto) Baso % (Auto) Neut # (Auto) Lymph # (Auto) [place] # (Auto) Eos # (Auto) Baso # (Auto) Neutrophils % (Manual) (40-60) % Band Neutrophils % (0-10) % Lymphocytes % (Manual) (20-40) % Atypical Lymphs % % Monocytes % (Manual) (2-10) % Eosinophils % (Manual) (0.8-7.0) % Basophils % (Manual) (0.2-1.2) Manual Slide Review Toxic Granulation Platelet Estimate Plt Morphology Comment Polychromasia Anisocytosis Macrocytosis Tear Drop Cells Schistocytes RBC Morph Comment PT (9.5-12.1) SECONDS INR APTT (24-31) SECONDS Puncture Site Lt radial ABG pH 7.22 L (7.35-7.45) ABG pCO2 50.4 H (35.0-45.0) mmHg ABG pO2 84.0 (80.0-100.0) mmHg ABG HCO3 20.0 L (22.0-26.0) meq/L ABG O2 Saturation 89.8 L (96.0-97.0) % ABG Base Excess -7.2 L (-2-2.0) Cosme Test Positive A-a Gradient 173 mmHg O2 Delivery Device Ventilator FiO2 (21.00-100.00) % Tidal Volume 450.0 cc PEEP 5.0 cmH20 Sodium 120 L (136-145) mEq/L Potassium 6.1 H (3.5-5.1) mEq/L Chloride 82 L (98-107) mEq/L Carbon Dioxide 18 L (21-32) mEq/L Anion Gap 26.1 H (5-15) BUN 121 H (7-18) mg/dL Creatinine 10.2 H (0.7-1.3) mg/dL Est Cr Clr Drug Dosing 8.86 mL/min Estimated GFR (MDRD) 6 (>60) mL/min BUN/Creatinine Ratio 11.9 L (14-18) Glucose 147 H (74-106) mg/dL POC Glucose (70-105) mg/dL Lactic Acid (0.4-2.0) mmol/L Calcium 6.9 L (8.5-10.1) mg/dL Magnesium (1.8-2.4) mg/dl Total Bilirubin 18.1 H* (0.2-1.0) mg/dL Direct Bilirubin (0.0-0.2) mg/dl GGT (15-85) U/L AST 151 H (15-37) U/L ALT 63 (16-63) U/L Alkaline Phosphatase 231 H (46-116) U/L Ammonia 73 H (11-32) umol/L Total Protein 4.7 L (6.4-8.2) g/dl Albumin 1.4 L (3.4-5.0) g/dl Globulin 3.3 gm/dL Albumin/Globulin Ratio 0.4 L (1-2) TSH 3rd Generation (0.358-3.74) uIU/mL Salicylates (2.8-20) mg/dL Acetaminophen (10-30) ug/mL Ethyl Alcohol (0.00) gm% - Re-Assessments/Exams Free Text/Narrative Re-Assessment/Exam: Initially patient refuses any therapies. I spoke with the patient and family. Patient finally said yes to therapies. Patient's blood pressure upon admission to the ED with 66/37 with a heart rate of 85 and SPO2 97%. On examination patient was alert to family within the ED room, hospital setting, and also location of hospital. He cannot recall day, time, and year. Family wants everything done. After discussion with the patient he said go ahead with all studies. I do not think at this time the patient can adequately make an educated decision on what he wants. Patient had told family 2 days ago that he wants to get better. Labs to be obtained include: CBC, chem 14, blood cultures 2, urine drug tox, lactic acid, magnesium, coag studies, TSH, blood gas, ammonia level, serum EtOH , salicylate levele, acetaminophen levels, chest x-ray one view, head CT without contrast, and EKG. 1445 Nursing staff is attempting to start IV and patient is being uncooperative. 09/07/17 15:04 Reassessment, they were able to obtain IV. Patient is more cooperative. Patients BP is 85/s. 1524 CT head: No acute intracranial abnormalities noted. Reassessment: VS 78/46. No IVF's hanging yet. CXR: Poor inspiratory effort. Atelectasis to the right lower lobe. Labs reviewed: White blood cell count 11.62, hemoglobin 11.5, platelet count 168 , neutrophil percent is 83.8, neutrophil number is 9.73, INR 2.30, lactic acid 5.0, salicylates less than 0.2. 1538 Bedside blood sugar 74. Ordered amp of D50 IVP. Reassessment, BP 73/43. Magnesium 2.7. Total bilirubin is 21.4. TSH 1.015. I have ordered a GGT and also direct bilirubin. IVF's are running in. No antibiotic administered at this point. Awaiting for Cr to order vancomycin. Lactic acid 5.0, magnesium 2.7, total bilirubin is 21.4, direct bilirubin 18, GGT 586, ammonia level 73, salicylates 0.2, acetaminophen 0, serum EtOH 0. 1615 I have requested 2nd IV line. Anesthesia called to placed 2nd IV line. Ordered levo drip. Patients BP continues to be low 69/s. 163 Reassessment: 93/63 with levophed gtt. Patient continues to be confused. Awaiting for CMP prior to starting vancomycin. 184 I have discussed patient with . Agrees patient requires intubation. Patient is not cooperating and is confused. I have discussed this with family and they agree with proceeding with intubation. 164 Patient moved to trauma room. Respiratory has been contacted. Patient placed on high flow O2 via nasal cannula. All intubation equipment prepared. 1713 Utilized 20 mg of etomidate IVP and rocuronium 80 mg IVP. Intubation successful 1 with 7.5 ET tube size. NG tube placed. End tidal CO2 with waveform 20 mmHg. Lungs sounds equal bilaterally. CXR confirmed ET tube and GI tube placement. [employer] [facility] [employer] contacted for flight request. Due to the weather they are not flying. 1723 [facility] has been contacted. It will be approximately 1/2 prior to arrival for transport. Oral gastric tube dark blood present. Ordered protonix 8 mg/HR gtt. 174 Vent settings: A/C, rate 12, tidal volume 450, IE 1:2, Peep 5, FiO2 50%. EtCo2 30. Levophed gtt 3.5 mcg/min. Per nursing staff propofol gtt 20mls/hr. 1755 Central Line Subclavian right side placed by Dr. Allison with placement confirmed by CXR. Will not obtain a art line. Sodium 120, potassium 6.1, CO2 18, hCG 26, BUN 121, creatinine 10.2, glucose 147 , calcium 6.9, total bilirubin 18.1, AST 151, AST 63, and alk phosphatase 21. 181 Ambulance crew has arrived. Ordered BMP and lactic acid repeat. Will not wait to be obtained since this will delay transport. 181 2nd ABG: pH 7.22, pCO2 50.4, pO2 84. ctHb 11.1, sO2 89.8%, FO2 87.8. Increased respiratory rate from 12 to 15. 182 [facility] Total Critical Care Time 110 minutes. Departure - Departure Time of Disposition: 18:12 Condition: Critical Critical Care Note - Critical Care Note Total Time (mins): 110
[2017-09-07] MEDS ORDERED: Rocuronium 50 MG/5 ML Vial ONE (15:00)
[2017-09-07] MEDS ORDERED: Pantoprazole 40 MG Vial ONE (15:00)
[2017-09-07] MEDS ORDERED: Propofol 1,000 MG/100 ML SDV ONE (15:00)
[2017-09-07] MEDS ORDERED: Etomidate 2 MG/ML 20 ML SDV IVPUSH ONE (15:00)
[2017-09-07] MEDS ORDERED: Norepinephrine 4 MG in Dextrose 5% in Water 246 ML IV SCH ×4 (15:15→16:30)
--- NOTE | 2017-09-07 15:21 | CT ---
Head CT Technique: Multiple axial sections through the brain were obtained. Intravenous contrast was not utilized. Comparison: No prior intracranial imaging. Findings: Ventricles along with basal cisterns and sulci over the convexities are within normal limits for the patient's age. No abnormal parenchymal densities are seen. No evidence of intracranial hemorrhage. No midline shift or mass effect is seen. Bone window settings were reviewed which shows minimal fluid and mucosal thickening within the inferior left mastoid sinus. Sinuses are otherwise clear. Impression: 1. Minimal findings within the left mastoid sinus most likely incidental. 2. No acute intracranial abnormality is seen. Diagnostic code #2
[2017-09-07] MEDS ORDERED: 50% Dextrose in Water 50 ML Syringe IVPUSH ONE (15:38)
[2017-09-07] MEDS ORDERED: 50% Dextrose in Water 50 ML Syringe ONE (15:39)
[2017-09-07] MEDS ORDERED: Dextrose 5% in Water 250 ML ONE (16:22)
--- NOTE | 2017-09-07 16:26 | CR ---
Chest: Portable view of the chest was obtained. Comparison: No prior chest x-ray. Heart size and mediastinum are within normal limits for portable technique. Mild right basilar atelectasis is seen. Lungs otherwise show no acute parenchymal change. Impression: 1. Mild right basilar atelectasis. Nothing acute is otherwise seen. Diagnostic code #2
--- NOTE | 2017-09-07 16:45 | PCM.SN ---
- Free Text/Narrative Note: Difficult IV access. Called to insertion. Patient hypotensive. 20 gauge IV inserted with one attempt to left forearm, good blood return, flushed with 10ml 0.9NS.
[2017-09-07] MEDS ORDERED: Pantoprazole 80 MG in Sodium Chloride 0.9% 100 ML IV ONE (17:25)
--- NOTE | 2017-09-08 07:17 | CR ---
Chest: Portable view of the chest was obtained (5:22 PM). Comparison: Previous chest x-ray performed on the same day (2:59 PM). Atelectasis is seen within both lung bases. Heart size and mediastinum are within normal limits for portable technique. Tip of endotracheal tube lies at the level of the clavicles. Nasogastric tube courses off the inferior film in the area of the stomach. Impression: 1. Mild bibasilar atelectasis. 2. Satisfactory position of tubes and catheters as noted above. Diagnostic code #3
--- NOTE | 2017-09-08 07:17 | CR ---
Chest: Supine portable view of the chest was obtained (6:51 PM). Comparison: Prior chest x-ray performed earlier the same day (5:52 PM). Right-sided central catheter is seen. Tip of the catheter is difficult to see and I am uncertain as to actual position. Atelectasis remains within the right lung base. Stable position of endotracheal tube and nasogastric tube. Impression: 1. Right central catheter, tip difficult to see and uncertain as to actual position of catheter. 2. Stable position of endotracheal tube and nasogastric tube. 3. Persistent atelectasis. Diagnostic code #3
--- NOTE | 2017-09-08 08:11 | CR ---
Chest: Portable view of the chest is obtained (5:52 PM). Comparison: Previous chest x-ray performed on the same day (5:51 PM). Tip of endotracheal tube lies at the level of the clavicles. Nasogastric tube again courses off the inferior film. Right-sided central line is seen. Tip overlies the spine but appears to lie within the right atrium. Persistent atelectasis within the right lung base. Impression: 1. Right-sided central line with tip of the catheter not being well seen but felt to be within the right atria. 2. Other stable findings as noted above. Diagnostic code #3
--- NOTE | 2017-09-08 08:11 | CR ---
Chest: Portable view of the chest was obtained (5:51 PM). Comparison: Prior chest x-ray performed earlier on same day (5:22 PM). Right-sided central line has been placed. Tip lies at the right atrial and inferior vena cava junction. Atelectasis is seen within the right base. Endotracheal tube remains at the level of the clavicles. Nasogastric tube again courses off the inferior edge of the film in the area of the stomach. Impression: 1. Right-sided central line with tip lying near the right atrial inferior vena cava junction. 2. Stable position of endotracheal tube and nasogastric tube. Diagnostic code #3
== END 2017-09-07 18:32 ==
LOC: JD.ED 14:04
DX: K70.31 Alcoholic cirrhosis of liver with ascites (principal); K92.2 Gastrointestinal hemorrhage, unspecified; K65.2 Spontaneous bacterial peritonitis; N17.9 Acute kidney failure, unspecified; E87.1 Hypo-osmolality and hyponatremia; F17.210 Nicotine dependence, cigarettes, uncomplicated
CPT/HCPCS: 31500; 36415; 36556; 36600; 51702; 70450; 71045; 80053; 82140; 82247; 82248; 82803; 82962; 82977; 83605; 83735; 84443; 85007; 85027; 85610; 85730; 87040; 93005; 96361; 96365; 96366; 96368; 96375; 99291; 99292; A9270; C9113; G0480; J7030; J7040; J7060; J7120; J3490